=== PATIENT | male | born 1985 | race African-American/Black ===

== ENCOUNTER 2019-11-03 10:02 | Emergency (ER) | payer BC ==
[~2019-11-03] VITALS: Ht 175.3 cm; Wt 92.9 kg
[2019-11-03 10:07] VITALS: BP 161/104
--- NOTE | 2019-11-03 10:30 | NUR ---
ANTHONY PA WAS IN TO SEE PT. UA SENT.
[2019-11-03 10:54] LABS: MICROSCOPIC AUTO
--- NOTE | 2019-11-03 11:24 | NUR ---
D/C INSTRUCTIONS RV'WD WITH PT, HE VERBALIZES UNDERSTANDING. PT AMBULATED OUT OF ED WITHOUT DIFFICULTY.
== END 2019-11-03 11:24 | disposition home or self-care (01) ==
LOC: ED 10:50
DX: A60.01 Herpesviral infection of penis (principal)
CPT/HCPCS: 81001; 87086; 99283